=== PATIENT | female | born 2000 | race Caucasian/White ===

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

== ENCOUNTER 2021-12-10 11:16 | Outpatient (CLI) | payer OTHER ==
--- NOTE | 2021-12-10 16:24 | XRAY Report ---
PROCEDURE: Ribs 2 View RT INDICATIONS: RT RIB PAIN TECHNIQUE: To views of the right ribs were acquired. COMPARISON: None FINDINGS: Surgical changes and devices: None. Bones and chest wall: No fractures or dislocations. No suspicious bony lesions. Overlying soft tis sues appear unremarkable. Lungs and pleura: The visualized lung appears clear. No pleural effusions or pneumothorax are visib le. IMPRESSION: No displaced right rib fractures. Reviewed by: Mable Lorenzo MD, PhD on 12/10/2021 4:23 PM PDT Approved by: Mable Lorenzo MD, PhD on 12/10/2021 4:23 PM PDT Station ID: [id number]
--- NOTE | 2021-12-10 17:27 | XRAY Report ---
PROCEDURE: Chest 2 View X-Ray INDICATIONS: RT RIB PAIN TECHNIQUE: 2 view(s) of the chest. COMPARISON: None. FINDINGS: Surgical changes and devices: None. Lungs and pleura: No pleural effusions or pneumothorax. Lungs are clear. Mediastinum: Mediastinal contours are normal. Heart size is normal. Bones and chest wall: No suspicious bony abnormalities. Soft tissues appear unremarkable. IMPRESSION: Normal chest x-ray. No evidence of rib fracture or pneumothorax Reviewed by: Joaquin Morales MD on 12/10/2021 4:26 PM AKDT Approved by: Joaquin Morales MD on 12/10/2021 4:26 PM AKDT Station ID: [id number]
== END 2021-12-10 11:17 | disposition home or self-care (01) ==
LOC: DI 11:16
PROVIDERS: ATTEND Pediatrics
DX: R07.81 Pleurodynia (principal)

== ENCOUNTER 2023-02-20 13:30 | Outpatient (CLI) | payer OTHER | END 2023-02-20 13:31 | disposition home or self-care (01) | LOC: RT 13:30 | PROVIDERS: ATTEND Pediatrics | DX: Z01.818 Encounter for other preprocedural examination (principal); Q67.6 Pectus excavatum | CPT/HCPCS: 94010 ==

== ENCOUNTER 2023-04-14 09:58 | Outpatient (CLI) | payer OTHER ==
--- NOTE | 2023-04-14 14:32 | CT Report ---
PROCEDURE: CHEST WO INDICATIONS: PECTUS EXCAVATUM TECHNIQUE: Noncontrast 1mm axial images were acquired from the pulmonary apices to the posterior costophrenic an gles. Axial 5 mm soft tissue kernel reconstructions were performed as well as 8 mm axial MIP and cor onal and sagittal 5 mm reformations. For radiation dose reduction, the following was used: automate d exposure control, adjustment of mA and/or kV according to patient size. COMPARISON: Chest x-ray 12/10/2021 FINDINGS: Image quality: Excellent. Lungs and pleura: No consolidation. No pleural effusions. No pneumothorax. No suspicious pulmonary n odules which require follow up. Mediastinum: Heart size is normal. No pericardial effusion. No large vessel abnormality. No mediastin al adenopathy by size criteria. Chest wall and lower neck: Thyroid is unremarkable. No axillary or supraclavicular adenopathy by size . Bones: No aggressive osseous abnormality. There is significant pectus excavatum deformity measuring a pproximately 4.6 cm. There is mild leftward displacement of the heart and mediastinal structures. Upper Abdomen: Unremarkable. IMPRESSION: Pectus excavatum deformity causing a forward displacement of the heart and mediastinal structures as above. Reviewed by: Juanita Salmeron MD on 04/14/2023 2:31 PM PDT Approved by: Juanita Salmeron MD on 04/14/2023 2:31 PM PDT Station ID: [id number]
== END 2023-04-14 09:59 | disposition home or self-care (01) ==
LOC: DI 09:58
PROVIDERS: ATTEND Pediatrics
DX: Q67.6 Pectus excavatum (principal)